=== PATIENT | female | born 1935 | race Caucasian/White ===

== ENCOUNTER 2019-02-21 16:13 | Inpatient (IN) | payer MEDICAID, MEDICARE ==
[~2019-02-21] VITALS: Ht 152.4 cm; Wt 87.5 kg
[2019-02-21 21:21] VITALS: BP 122/57
--- NOTE | 2019-02-21 22:00 | NUR ---
pt arrived on the unit @1999 via ambulance. Pt is in stable condition. Denies any pain. skin check is done, bilateral cellulitis and redness of lower extremities, R groin moisture related skin breakdown ( pictures in the chart). family is by the bedside. Belongings checked in, meds updated in the charted and Dr. Gabriel notified of patient's arrival. Nothing urgent at the moment.
[2019-02-21] MEDS ORDERED: ANAS1TAB8 PO (22:02)
[2019-02-21] MEDS ORDERED: ASPI-605 PO (22:03)
[2019-02-21] MEDS ORDERED: COLC0.6C3 PO (22:05)
[2019-02-21] MEDS ORDERED: EZET10TA32 PO (22:06)
[2019-02-21] MEDS ORDERED: FAMO40TA7 PO (22:08)
[2019-02-21] MEDS ORDERED: GABA-534 PO (22:13)
[2019-02-21] MEDS ORDERED: MECL-159 PO (22:35)
[2019-02-21] MEDS ORDERED: MEMA10TA PO (22:36)
[2019-02-21] MEDS ORDERED: MONT10TA22 PO (22:37)
[2019-02-21] MEDS ORDERED: VANC1PLA9 IV (22:39)
[2019-02-21] MEDS ORDERED: [UNRECOGNIZED DRUG - CODE] PO (22:42)
[2019-02-21] MEDS ORDERED: CEFE1PIG3 IV (22:47)
[2019-02-22 06:15] VITALS: BP 134/60
[2019-02-22] MEDS ORDERED: [UNRECOGNIZED DRUG - OTHER] SUBCUT (07:17)
[2019-02-22 08:18] VITALS: BP 122/51
[2019-02-22] MEDS ORDERED: MECLIZINE HCL 25 MG TABLET PO PRN (15:45)
[2019-02-22] MEDS ORDERED: VANCOMYCIN IV 1,000 MG in IV DEXTROSE 5% 250 ML IV SCH (16:00)
[2019-02-22 16:15] VITALS: BP 126/53
--- NOTE | 2019-02-22 16:39 | NUR ---
CLINICAL PHARMACY NOTE: VANCOMYCIN DOSING Request for vancomycin dosing on 83 y/o female 5' 200lbs for cellulitis Patient transferred from [facility] from 02/21 BUN 38 scr 1.1 WBC 15.6 Temp 98.0 Patient was receiving Vancomycin 1gm ivpb [id number] and Cefepime 1gm ivpb q12h. Vancomycin trough on was 14. Continue vancomycin 1gm ivpb q24h. Will continue to monitor. Addendum: 02/22/19 at 1703 by ANASTASIA GRIMES CULTURE AND SENSITIVITY OF TOE WOUND REVIEWED ID DISCONTINUE VANCOMYCIN STARTED BACTRIM
[2019-02-22] MEDS ORDERED: Medication Not On Formulary EA (Colchicine 0.6 MG) PO SCH (17:00)
[2019-02-22] MEDS ORDERED: DEXTROSE 50% 50 ML DISP.SYRIN IV PRN (17:15)
[2019-02-22] MEDS: MEMANTINE HCL 10 MG TABLET PO SCH (17:34)
[2019-02-22] MEDS: MONTELUKAST SODIUM 10 MG TABLET PO SCH (17:34)
[2019-02-22] MEDS: SULFAMETH/TRIMETH 800/160 MG TABLET PO SCH (17:34)
[2019-02-22] MEDS: RIVAROXABAN 15 MG TABLET PO SCH (18:37)
--- NOTE | 2019-02-22 19:08 | NUR ---
PATIENT IS ALERT, ORIENTED X3, NO SOB,RESP EVEN NONLABORED,SKIN WARM AND DRY TO TOUCH, PATIENT HAS BOTH LEGS RED AND SWOLLEN, CELLULITIS, CONTINUE ON ATB ORDERED, NOTED WITH BLACK COLOR BOWEL MOVEMENT, AND DARK COLOR, URINE, NOTIFIED LINE SUPERVISOR EVELYN MONTIEL BEFORE GIVING XERALTO, PER LINE SUPERVISOR ITS OK TO GIVE XERALTO. STAT HEMOGLOBIN AND HEMATOCRIT ORDERED. PATIENT TOLERATED MEDS AND MEALS WELL. NO DISTRESS NOTED
[2019-02-22] MEDS ORDERED: Z GUARD REMEDY PASTE 57 GM TUBE TOP PRN (19:30)
--- NOTE | 2019-02-22 19:40 | NUR ---
Awake during initial rounds, complaining of left leg and low back pain in scale of/ Guevara, TRAVEL RN OR made aware with new order, noted and carried on. Pharmacy made aware nad verified. Safety measure and fall precaution maintained. Continue care as planned.
[2019-02-22 19:44] LABS: HEMATOCRIT 33.6 % (31.2-41.9); HEMOGLOBIN 10.9 g/dL (10.9-14.3)
[2019-02-22 20:05] VITALS: BP 156/70
[2019-02-22] MEDS ORDERED: HYDROCODONE/APAP 5-325MG TABLET PO PRN (20:15)
[2019-02-22] MEDS ORDERED: MORPHINE SULFATE 2 MG/1 ML DISP.SYRIN IVP PRN (20:15)
[2019-02-22] MEDS: CEFEPIME HCL 1 G in IV DEXTROSE 5% 50 ML IV SCH (20:54)
[2019-02-22] MEDS: GABAPENTIN 300 MG CAPSULE PO SCH (20:55)
[2019-02-22] MEDS: VORICONAZOLE 200 MG TABLET PO SCH (20:55)
[2019-02-22] MEDS: EZETIMIBE 10 MG TABLET PO SCH (20:55)
[2019-02-22] MEDS ORDERED: VORICONAZOLE 200 MG PO SCH (21:00)
[2019-02-22] MEDS ORDERED: FAMOTIDINE 20 MG TABLET PO SCH (21:00)
[2019-02-22] MEDS ORDERED: Medication Not On Formulary EA (Famotidine 40 MG) PO SCH (21:00)
[2019-02-22] MEDS: BLOOD SUGAR DIAGNOSTIC 1 EACH STRIP VI SCH (21:13)
[2019-02-22] MEDS: INSULIN GLARGINE,HUM 300 UNITS/3 ML CARTRIDGE SQ SCH (21:15)
[2019-02-22] MEDS: INSULIN REGULAR, HUMAN 300 UNIT/3 ML VIAL SQ PRN (21:15)
--- NOTE | 2019-02-23 05:56 | NUR ---
Shift End Report; VS stable. Medicated once for pain with relief. No further complaint presented. Slept well. No s/s of adverse reaction from antibiotics noted. Midline intact, no s/s of infiltration. F/C intact and patent, draining qs clear yellow urine output. All needs attended and met. No significant event reported throughout the night. Continue current rehab plan of care.
[2019-02-23] MEDS: SULFAMETH/TRIMETH 800/160 MG TABLET PO SCH ×2 (06:04→17:24)
[2019-02-23] MEDS: BLOOD SUGAR DIAGNOSTIC 1 EACH STRIP VI SCH ×4 (06:16→20:53)
[2019-02-23 06:24] VITALS: BP 157/66
--- NOTE | 2019-02-23 06:25 | NUR ---
Bp 152/62, Apresoline 25 mg 1 tab po given as needed and as ordered. Pt denied any s/s of hypertension. Will monitor. Addendum: 02/23/19 at 0629 by TEODORA PITTS RN Wrong patient
[2019-02-23 06:27] LABS: BASOPHILS # (AUTO) 0.1 K/uL (0.0-8.0); BASOPHILS % (AUTO) 0.7 % (0.0-2.0); EOSINOPHILS # (AUTO) 0.6 K/uL (0.0-0.7); EOSINOPHILS % (AUTO) 3.1 % (0.0-7.0); HEMATOCRIT 34.3 % (31.2-41.9); LYMPHOCYTES # (AUTO) 2.3 K/uL (20.0-40.0); LYMPHOCYTES % (AUTO) 12.7 % (20.5-51.5); MEAN CORPUSCULAR HEMOGLOBIN 28.4 uug (24.7-32.8); MEAN CORPUSCULAR HGB CONC 32 g/dL (32.3-35.6); MEAN CORPUSCULAR VOLUME 88.8 fL (75.5-95.3); MONOCYTES # (AUTO) 1.2 K/uL (2.0-10.0); MONOCYTES % (AUTO) 6.6 % (0.0-11.0); NEUTROPHILS # (AUTO) 13.8 K/uL (1.8-8.9); NEUTROPHILS % (AUTO) 76.9 % (38.5-71.5); PLATELET COUNT (AUTO) 311 K/uL (179-408); RED BLOOD CELL COUNT(AUTO) 3.86 MIL/uL (3.63-4.92); WHITE BLOOD COUNT (AUTO) 17.9 K/uL (3.8-11.8)
[2019-02-23 06:36] LABS: POTASSIUM 4.1 mmol/L (3.5-5.1)
[2019-02-23 08:00] VITALS: BP 148/43
[2019-02-23] MEDS: MEMANTINE HCL 10 MG TABLET PO SCH ×2 (08:33→16:02)
[2019-02-23] MEDS: ASPIRIN EC 81 MG TABLET.DR PO SCH (08:33)
[2019-02-23] MEDS: VORICONAZOLE 200 MG TABLET PO SCH ×2 (08:33→20:49)
[2019-02-23] MEDS: CEFEPIME HCL 1 G in IV DEXTROSE 5% 50 ML IV SCH ×2 (08:33→20:49)
[2019-02-23] MEDS: RIVAROXABAN 15 MG TABLET PO SCH (08:34)
[2019-02-23] MEDS: ANASTROZOLE 1 MG TABLET PO SCH (08:36)
[2019-02-23 10:13] LABS: *OCCULT BLOOD STOOL POSITIVE (NEGATIVE)
[2019-02-23] MEDS: INSULIN REGULAR, HUMAN 300 UNIT/3 ML VIAL SQ PRN ×3 (11:19→20:54)
[2019-02-23] MEDS: SUCRALFATE 1 G TABLET PO SCH ×3 (12:11→20:50)
--- NOTE | 2019-02-23 13:51 | NUR ---
Patient seen and examined by ROSELIA Guevara, referred to vascular surgeon and cardio for possible IVC filter for DVT in left lower leg. Continue blood sugar monitoring. no signs of pain/discomfort noted. Stool for occult blood and cdiff collected-sent to lab. awaiting result. Continue ATB IV cefepime treatment for cellulitis. no adverse reaction noted. will continue monitor
[2019-02-23] MEDS: PANTOPRAZOLE SODIUM 40 MG TABLET.DR PO SCH (16:02)
[2019-02-23 16:09] VITALS: BP 148/43
[2019-02-23] MEDS: MONTELUKAST SODIUM 10 MG TABLET PO SCH (17:24)
--- NOTE | 2019-02-23 17:38 | NUR ---
According to lab, need to collect stool for cdiff. will endorse
[2019-02-23] MEDS: AMLODIPINE 5 MG TABLET PO SCH (18:15)
--- NOTE | 2019-02-23 18:16 | NUR ---
Patient seen and examined by cardio MD Alvarez, ordered amlodipine for HTN daily. will continue monitor
[2019-02-23 18:20] LABS: HEMATOCRIT 32.8 % (31.2-41.9); HEMOGLOBIN 10.7 g/dL (10.9-14.3)
--- NOTE | 2019-02-23 19:39 | NUR ---
Awake, in bed, not in distress. Denies any pain/discomforts at this time. Midline CHERELLE intact and patent. No redness/swelling noted. F/C intact and patent, draining clear yellow output. Continue care as planned.
[2019-02-23 19:52] VITALS: BP 126/63
[2019-02-23] MEDS: GABAPENTIN 300 MG CAPSULE PO SCH (20:49)
[2019-02-23] MEDS: EZETIMIBE 10 MG TABLET PO SCH (20:50)
[2019-02-23] MEDS: INSULIN GLARGINE,HUM 300 UNITS/3 ML CARTRIDGE SQ SCH (20:55)
[2019-02-23] MEDS: METRONIDAZOLE 500 MG TABLET PO SCH (21:47)
[2019-02-24] MEDS: SULFAMETH/TRIMETH 800/160 MG TABLET PO SCH ×2 (06:13→18:00)
[2019-02-24] MEDS: SUCRALFATE 1 G TABLET PO SCH ×4 (06:13→20:17)
[2019-02-24] MEDS: PANTOPRAZOLE SODIUM 40 MG TABLET.DR PO SCH ×2 (06:13→16:41)
[2019-02-24] MEDS: METRONIDAZOLE 500 MG TABLET PO SCH ×3 (06:13→22:00)
[2019-02-24] MEDS: BLOOD SUGAR DIAGNOSTIC 1 EACH STRIP VI SCH ×4 (06:22→20:27)
[2019-02-24 06:26] VITALS: BP 129/60
--- NOTE | 2019-02-24 06:27 | NUR ---
Shift End Report: Vs stable. Slept good. No complaint presented all night. No s/s of hypo/hypertension, s/s ofhypo/hyperglycemia. No s/s of adverse reaction from antibiotics. All needs attended and met. No significant event reported all night. Continue current rehab plan of care
[2019-02-24 06:49] LABS: BASOPHILS % (AUTO) 0.4 % (0.0-2.0); EOSINOPHILS # (AUTO) 0.4 K/uL (0.0-0.7); EOSINOPHILS % (AUTO) 3.4 % (0.0-7.0); HEMATOCRIT 32.5 % (31.2-41.9); HEMOGLOBIN 10.5 g/dL (10.9-14.3); LYMPHOCYTES # (AUTO) 2.1 K/uL (20.0-40.0); LYMPHOCYTES % (AUTO) 16.3 % (20.5-51.5); MEAN CORPUSCULAR HEMOGLOBIN 28.7 uug (24.7-32.8); MEAN CORPUSCULAR HGB CONC 32 g/dL (32.3-35.6); MEAN CORPUSCULAR VOLUME 89.2 fL (75.5-95.3); MONOCYTES # (AUTO) 1.1 K/uL (2.0-10.0); MONOCYTES % (AUTO) 8.8 % (0.0-11.0); NEUTROPHILS # (AUTO) 9.3 K/uL (1.8-8.9); NEUTROPHILS % (AUTO) 71.1 % (38.5-71.5); PLATELET COUNT (AUTO) 331 K/uL (179-408); RED BLOOD CELL COUNT(AUTO) 3.65 MIL/uL (3.63-4.92)
[2019-02-24 06:54] LABS: CREATININE 1.2 mg/dL (0.6-1.3); POTASSIUM 4.4 mmol/L (3.5-5.1)
[2019-02-24 08:23] VITALS: BP 140/42
[2019-02-24] MEDS: CEFEPIME HCL 1 G in IV DEXTROSE 5% 50 ML IV SCH (08:36)
[2019-02-24] MEDS: MEMANTINE HCL 10 MG TABLET PO SCH ×2 (08:37→16:40)
[2019-02-24] MEDS: AMLODIPINE 5 MG TABLET PO SCH (08:37)
[2019-02-24] MEDS: ASPIRIN EC 81 MG TABLET.DR PO SCH (08:37)
[2019-02-24] MEDS: VORICONAZOLE 200 MG TABLET PO SCH ×2 (08:37→20:17)
[2019-02-24] MEDS: ANASTROZOLE 1 MG TABLET PO SCH (08:39)
[2019-02-24] MEDS: INSULIN REGULAR, HUMAN 300 UNIT/3 ML VIAL SQ PRN ×2 (11:55→16:24)
--- NOTE | 2019-02-24 12:29 | NUR ---
INDIVIDUALIZE OVERALL PLAN OF CARE
--- NOTE | 2019-02-24 13:16 | NUR ---
INTERDISCIPLINARY TEAM CONFERENCE
[2019-02-24 14:42] LABS: BASOPHILS # (AUTO) 0.1 K/uL (0.0-8.0); BASOPHILS % (AUTO) 0.7 % (0.0-2.0); EOSINOPHILS # (AUTO) 0.3 K/uL (0.0-0.7); EOSINOPHILS % (AUTO) 1.8 % (0.0-7.0); HEMATOCRIT 33.1 % (31.2-41.9); HEMOGLOBIN 10.7 g/dL (10.9-14.3); LYMPHOCYTES # (AUTO) 1.6 K/uL (20.0-40.0); LYMPHOCYTES % (AUTO) 10.5 % (20.5-51.5); MEAN CORPUSCULAR HEMOGLOBIN 28.9 uug (24.7-32.8); MEAN CORPUSCULAR HGB CONC 32 g/dL (32.3-35.6); MEAN CORPUSCULAR VOLUME 89.5 fL (75.5-95.3); MONOCYTES # (AUTO) 1.1 K/uL (2.0-10.0); MONOCYTES % (AUTO) 7.3 % (0.0-11.0); NEUTROPHILS # (AUTO) 11.8 K/uL (1.8-8.9); NEUTROPHILS % (AUTO) 79.7 % (38.5-71.5); PLATELET COUNT (AUTO) 321 K/uL (179-408); RED BLOOD CELL COUNT(AUTO) 3.69 MIL/uL (3.63-4.92); WHITE BLOOD COUNT (AUTO) 14.9 K/uL (3.8-11.8)
[2019-02-24 14:53] LABS: CARBON DIOXIDE 27 mmol/L (21-32); CHLORIDE 100 mmol/L (98-107); CREATININE 1.6 mg/dL (0.6-1.3); GLUCOSE 213 mg/dL (74-106); POTASSIUM 4.9 mmol/L (3.5-5.1); UREA NITROGEN, BLOOD 39 mg/dL (7-18)
[2019-02-24 15:36] VITALS: BP 132/57
--- NOTE | 2019-02-24 16:47 | NUR ---
Received patient awake in bed in stable condition. not in distress. Seen and examined by ROSELIA Guevara and MD Alvarez with no new order. Patient will have procedure around 530pm with vascular surgeon MD Gonzalez. CBC CMP chest x-ray and EKG requested by and done. Patient sign consent. Brother Jony aware. MD Gabriel notified. ROSELIA Guevara agree to return to Acute Rehab after the procedure. will endorse
--- NOTE | 2019-02-24 17:19 | NUR ---
Patient went to OR around 515pm with her bed with 2 OR nurse in stable condition. Remove jewerlies and dentures. Chart and signed consent with Jaylin OR nurse.
[2019-02-24] MEDS ORDERED: MIDAZOLAM HCL 2 MG/2 ML VIAL ONE (17:48)
[2019-02-24] MEDS ORDERED: FENTANYL CITRATE 100 MCG/2 ML AMPUL ONE (17:48)
[2019-02-24] MEDS: MONTELUKAST SODIUM 10 MG TABLET PO SCH (18:00)
--- NOTE | 2019-02-24 19:25 | NUR ---
Received patient from Recovery, S/P IVC filter placement, dressing on right groin area dry and intact. Awake, not in distress, denies any pain/discomforts at this time, with IVF infusing. O2 at 2L via NC, saturating 96%. F/C intact, draining well with clear yellow urine output. Maintain on supine position till 1030 per instruction by OR nurse. Vs taken and recorded. Will monitor for bleeding.
[2019-02-24] MEDS: CEFTRIAXONE 1 G in IV DEXTROSE 5% 50 ML IV SCH (20:17)
[2019-02-24] MEDS: EZETIMIBE 10 MG TABLET PO SCH (20:17)
[2019-02-24] MEDS: GABAPENTIN 300 MG CAPSULE PO SCH (20:18)
[2019-02-24] MEDS: INSULIN GLARGINE,HUM 300 UNITS/3 ML CARTRIDGE SQ SCH (20:26)
--- NOTE | 2019-02-24 20:55 | NUR ---
Patient continue to refused Gabapentin due despite instructing her the risk and benefits. Will endorse to oncoming shift.
[2019-02-25] MEDS: METRONIDAZOLE 500 MG TABLET PO SCH ×3 (05:50→21:01)
[2019-02-25 06:11] VITALS: BP 133/57
--- NOTE | 2019-02-25 06:16 | NUR ---
Shift End Report: VS stable. No complaint presented all night. No active bleeding noted. Right groin dressing remain dry and intact. F/C intact and patent with qs amount of clear angela urine. No significant event reported all night. Continue current rehab plan of care.
[2019-02-25] MEDS: BLOOD SUGAR DIAGNOSTIC 1 EACH STRIP VI SCH ×4 (06:26→20:09)
[2019-02-25] MEDS: INSULIN REGULAR, HUMAN 300 UNIT/3 ML VIAL SQ PRN ×4 (08:05→20:11)
[2019-02-25] MEDS ORDERED: MECLIZINE HCL 25 MG TABLET PO PRN (08:15)
[2019-02-25] MEDS ORDERED: MORPHINE SULFATE 2 MG/1 ML DISP.SYRIN IVP PRN (08:15)
[2019-02-25] MEDS: VORICONAZOLE 200 MG TABLET PO SCH ×2 (08:42→20:16)
[2019-02-25 08:43] LABS: BASOPHILS % (AUTO) 0.4 % (0.0-2.0); CREATININE 1.3 mg/dL (0.6-1.3); EOSINOPHILS # (AUTO) 0.3 K/uL (0.0-0.7); EOSINOPHILS % (AUTO) 2.8 % (0.0-7.0); HEMATOCRIT 31.7 % (31.2-41.9); HEMOGLOBIN 10.2 g/dL (10.9-14.3); LYMPHOCYTES # (AUTO) 1.8 K/uL (20.0-40.0); LYMPHOCYTES % (AUTO) 15.5 % (20.5-51.5); MEAN CORPUSCULAR HEMOGLOBIN 28.7 uug (24.7-32.8); MEAN CORPUSCULAR HGB CONC 32 g/dL (32.3-35.6); MEAN CORPUSCULAR VOLUME 89.2 fL (75.5-95.3); MONOCYTES % (AUTO) 8.4 % (0.0-11.0); NEUTROPHILS # (AUTO) 8.7 K/uL (1.8-8.9); NEUTROPHILS % (AUTO) 72.9 % (38.5-71.5); PLATELET COUNT (AUTO) 343 K/uL (179-408); POTASSIUM 4.3 mmol/L (3.5-5.1); RED BLOOD CELL COUNT(AUTO) 3.55 MIL/uL (3.63-4.92); WHITE BLOOD COUNT (AUTO) 11.9 K/uL (3.8-11.8)
[2019-02-25] MEDS: ANASTROZOLE 1 MG TABLET PO SCH (08:43)
[2019-02-25] MEDS: MEMANTINE HCL 10 MG TABLET PO SCH ×2 (08:45→17:00)
[2019-02-25] MEDS: AMLODIPINE 5 MG TABLET PO SCH (08:48)
[2019-02-25] MEDS: ASPIRIN EC 81 MG TABLET.DR PO SCH (08:48)
[2019-02-25] MEDS: COLCHICINE 0.6 MG TABLET PO SCH ×2 (09:05→17:00)
[2019-02-25] MEDS: SUCRALFATE 1 G TABLET PO SCH ×3 (11:14→20:06)
--- NOTE | 2019-02-25 15:43 | NUR ---
PATIENT IS ALERT, ORIENTED X4, NO SOB,RESP EVEN NONLABORED, SKIN WARM AND DRY TO TOUCH, PATIENT STILL NOTED WITH REDNESS TO BOTH LOWER EXTREMITIES, SWOLLEN AND EDEMATOUS, LEFT 4TH TOES CALLOUS, AND DEBRIDED ON 02/17/19. DRY AND CLEAN, HARD TO TOUCH ON THE BOTTOM OF LEFT 4TH TOE. PATIENT IS ABLE TO STAND WITH ASSIST, ASSISTED TO BATHROOM, NO DISTRESS NOTED, TOLERATED PT, OT WELL. CONTINUE ON ATB THERAPY, NO ADVERSE REACTIONS NOTED, NO NAUSEA, NO VOMITING, NOTED WITH BM X2, SOFT, AND FORMED.
[2019-02-25] MEDS: MONTELUKAST SODIUM 10 MG TABLET PO SCH (17:01)
[2019-02-25] MEDS: PANTOPRAZOLE SODIUM 40 MG TABLET.DR PO SCH (17:03)
[2019-02-25 18:45] VITALS: BP 139/85
[2019-02-25 19:40] VITALS: BP 147/67
[2019-02-25] MEDS: CEFTRIAXONE 1 G in IV DEXTROSE 5% 50 ML IV SCH (20:04)
[2019-02-25] MEDS: GABAPENTIN 300 MG CAPSULE PO SCH (20:05)
[2019-02-25] MEDS: EZETIMIBE 10 MG TABLET PO SCH (20:06)
[2019-02-25] MEDS: INSULIN GLARGINE,HUM 300 UNITS/3 ML CARTRIDGE SQ SCH (20:10)
[2019-02-26 04:30] VITALS: BP 142/62
[2019-02-26] MEDS: METRONIDAZOLE 500 MG TABLET PO SCH ×3 (06:33→21:27)
[2019-02-26] MEDS: PANTOPRAZOLE SODIUM 40 MG TABLET.DR PO SCH ×2 (06:33→16:26)
[2019-02-26] MEDS: SUCRALFATE 1 G TABLET PO SCH ×4 (06:33→20:58)
[2019-02-26] MEDS: BLOOD SUGAR DIAGNOSTIC 1 EACH STRIP VI SCH ×4 (06:41→21:08)
[2019-02-26 07:32] LABS: BASOPHILS # (AUTO) 0.1 K/uL (0.0-8.0); BASOPHILS % (AUTO) 0.5 % (0.0-2.0); EOSINOPHILS # (AUTO) 0.3 K/uL (0.0-0.7); EOSINOPHILS % (AUTO) 2.7 % (0.0-7.0); HEMATOCRIT 32.4 % (31.2-41.9); HEMOGLOBIN 10.5 g/dL (10.9-14.3); LYMPHOCYTES # (AUTO) 2.4 K/uL (20.0-40.0); LYMPHOCYTES % (AUTO) 19.9 % (20.5-51.5); MEAN CORPUSCULAR HEMOGLOBIN 28.4 uug (24.7-32.8); MEAN CORPUSCULAR HGB CONC 33 g/dL (32.3-35.6); MEAN CORPUSCULAR VOLUME 87.4 fL (75.5-95.3); MONOCYTES # (AUTO) 0.9 K/uL (2.0-10.0); MONOCYTES % (AUTO) 7.8 % (0.0-11.0); NEUTROPHILS # (AUTO) 8.2 K/uL (1.8-8.9); NEUTROPHILS % (AUTO) 69.1 % (38.5-71.5); PLATELET COUNT (AUTO) 351 K/uL (179-408); RED BLOOD CELL COUNT(AUTO) 3.71 MIL/uL (3.63-4.92); WHITE BLOOD COUNT (AUTO) 11.8 K/uL (3.8-11.8)
[2019-02-26 07:42] LABS: POTASSIUM 4.2 mmol/L (3.5-5.1)
[2019-02-26] MEDS: HYDROCODONE/APAP 5-325MG TABLET PO PRN (08:18)
[2019-02-26] MEDS ORDERED: COLCHICINE 0.6 MG TABLET PO SCH (09:00)
[2019-02-26] MEDS: ASPIRIN EC 81 MG TABLET.DR PO SCH ×2 (09:00→09:03)
[2019-02-26] MEDS: COLCHICINE 0.6 MG TABLET PO SCH ×2 (09:04→16:23)
[2019-02-26] MEDS: AMLODIPINE 5 MG TABLET PO SCH (09:04)
[2019-02-26] MEDS: MEMANTINE HCL 10 MG TABLET PO SCH ×2 (09:05→16:23)
[2019-02-26] MEDS: ANASTROZOLE 1 MG TABLET PO SCH (09:06)
--- NOTE | 2019-02-26 10:00 | NUR ---
PATIENT COMPLAINED PAIN TO HER RIGHT GROIN AREA, AND RADIATING TO HER BACK, WHILE AMBULATED TO THE BATHROOM WITH ASSIST WITH FWW, ASSESSED THE AREA OF INSERTION AT CATHETER SITE AT RIGHT GROIN, NO SWELLING NOTED, NO REDNESS NOTED, NO DRAINAGE NOTED. HOWEVER PATIENT STATED PAIN STOPPED ONCE SHE WAS IN BED. REPORTED TO GARETH PULLIAM, WITH ORDER TO CONTINUE TO MONITOR.
--- NOTE | 2019-02-26 11:49 | NUR ---
PAGED EPIC GROUP REGARDING POSITIVE RESULT OF C-DIFF. WAITING FOR CALL BACK.
--- NOTE | 2019-02-26 11:55 | NUR ---
CALL RECEIVED FROM ROSELIA RIVAS REPORTED C-DIFF POSITIVE,PER CONTENT STRATEGIST HE WILL INFORM THE ID
[2019-02-26] MEDS: INSULIN REGULAR, HUMAN 300 UNIT/3 ML VIAL SQ PRN ×3 (12:16→21:12)
[2019-02-26] MEDS: VANCOMYCIN FOR PO/GT/NG USE PO SCH ×3 (13:57→23:12)
--- NOTE | 2019-02-26 14:15 | NUR ---
patient is alert, oriented x4, no sob, resp even nonlabored, skin warm and dry to touch, still noted with both lower legs edema, swollen and redness, left extremity some purplish discoloration, pedal pulse present, capillary refill less than 3 seconds, sensations are intact. continue on atb for cellulitis and for c-diff, no adverse reactions noted, no nausea, no vomiting, no skin rashes. patient tolerated meals and meds well. assisted to the bathroom, BM x1 is soft and somewhat formed. jain catheter intact, draining angela color urine.
[2019-02-26 17:22] VITALS: BP 136/81
[2019-02-26] MEDS: MONTELUKAST SODIUM 10 MG TABLET PO SCH (17:32)
[2019-02-26 19:37] VITALS: BP 138/79
[2019-02-26] MEDS: CEFTRIAXONE 1 G in IV DEXTROSE 5% 50 ML IV SCH (20:51)
[2019-02-26] MEDS: EZETIMIBE 10 MG TABLET PO SCH (20:58)
[2019-02-26] MEDS: GABAPENTIN 300 MG CAPSULE PO SCH (20:58)
[2019-02-26] MEDS: INSULIN GLARGINE,HUM 300 UNITS/3 ML CARTRIDGE SQ SCH (21:13)
--- NOTE | 2019-02-27 04:44 | NUR ---
Received patient in bed. AAO x4. Not in acute distress or SOB. Able to make needs known. Norwegian speaking but can communicate in Grenadian. On room air. No Complain of pain. VS checked, stable. Double lumen mid-line on her right upper arm, intact, patent. Robertson catheter in place, draining well, yellow urine. Physical assessment done. IV Rocephin 1 G administered. All due medications given as ordered and well tolerated. Accucheck @2100: BS 183 covered by 3 units insulin based on sliding scale. Fall prevention observed. Safety measures maintained. All needs attended promptly. Bed in low and lock position, alarm on, side rails up x2 for safety. Call light and frequently used items within reach. Continue to monitor and will endorse to the oncoming nurse accordingly.
[2019-02-27] MEDS: METRONIDAZOLE 500 MG TABLET PO SCH ×2 (06:08→14:53)
[2019-02-27] MEDS: PANTOPRAZOLE SODIUM 40 MG TABLET.DR PO SCH ×2 (06:08→17:14)
[2019-02-27] MEDS: VANCOMYCIN FOR PO/GT/NG USE PO SCH ×3 (06:08→17:21)
[2019-02-27] MEDS: SUCRALFATE 1 G TABLET PO SCH ×4 (06:32→20:42)
[2019-02-27] MEDS: BLOOD SUGAR DIAGNOSTIC 1 EACH STRIP VI SCH ×4 (06:33→20:56)
[2019-02-27 07:00] VITALS: BP 135/69
[2019-02-27 07:00] LABS: POTASSIUM 4.9 mmol/L (3.5-5.1)
[2019-02-27 07:25] LABS: BASOPHILS # (AUTO) 0.1 K/uL (0.0-8.0); BASOPHILS % (AUTO) 0.5 % (0.0-2.0); EOSINOPHILS # (AUTO) 0.4 K/uL (0.0-0.7); EOSINOPHILS % (AUTO) 2.9 % (0.0-7.0); HEMATOCRIT 33.8 % (31.2-41.9); HEMOGLOBIN 10.9 g/dL (10.9-14.3); LYMPHOCYTES # (AUTO) 3.1 K/uL (20.0-40.0); LYMPHOCYTES % (AUTO) 24.4 % (20.5-51.5); MEAN CORPUSCULAR HEMOGLOBIN 29.1 uug (24.7-32.8); MEAN CORPUSCULAR HGB CONC 32 g/dL (32.3-35.6); MEAN CORPUSCULAR VOLUME 90.1 fL (75.5-95.3); MONOCYTES # (AUTO) 0.9 K/uL (2.0-10.0); MONOCYTES % (AUTO) 7.1 % (0.0-11.0); NEUTROPHILS # (AUTO) 8.2 K/uL (1.8-8.9); NEUTROPHILS % (AUTO) 65.1 % (38.5-71.5); PLATELET COUNT (AUTO) 350 K/uL (179-408); RED BLOOD CELL COUNT(AUTO) 3.75 MIL/uL (3.63-4.92); WHITE BLOOD COUNT (AUTO) 12.5 K/uL (3.8-11.8)
[2019-02-27] MEDS: ANASTROZOLE 1 MG TABLET PO SCH (08:21)
[2019-02-27] MEDS: ASPIRIN EC 81 MG TABLET.DR PO SCH (08:22)
[2019-02-27] MEDS: COLCHICINE 0.6 MG TABLET PO SCH ×2 (08:22→17:14)
[2019-02-27] MEDS: MEMANTINE HCL 10 MG TABLET PO SCH ×2 (08:23→17:14)
[2019-02-27] MEDS: AMLODIPINE 5 MG TABLET PO SCH (08:51)
[2019-02-27 09:00] VITALS: BP_SYST 124; BP_SYST 133; BP_DIAS 52; BP_DIAS 64
[2019-02-27] MEDS: HYDROCODONE/APAP 5-325MG TABLET PO PRN (12:20)
--- NOTE | 2019-02-27 13:15 | NUR ---
System not allowing to cosign. BS of 258mg, 6units of insulin verified by another RN and administered.
[2019-02-27] MEDS: INSULIN REGULAR, HUMAN 300 UNIT/3 ML VIAL SQ PRN ×3 (14:28→20:58)
[2019-02-27] MEDS: MONTELUKAST SODIUM 10 MG TABLET PO SCH (17:19)
--- NOTE | 2019-02-27 18:45 | NUR ---
Patient is AAOx4. Able to make needs known. In No acute distress. Vital signs taken and stable. Patient with midline or right arm, intact and in place. Denies pain at this time. Due medications administered as ordered and scheduled. Patient on Vancomycin PO, Flagyl and IV Rocephin. NO adverse reaction noted and tolerating well. [place] 5/325mg PO 1 tab PRN administered for pain and effective. Patient on PT/OT therapy as ordered, able to ambulate with a walker and W/C. Needs attended, safety measures in place, call light left at bed side, endorsed to next shift and will continue with care.
--- NOTE | 2019-02-27 19:40 | NUR ---
Received patient awake in bed, stable condition; AAO x4. Not in acute distress. No SOB. Assisted with current needs. Primary language is Mosotho, but can communicate in Czech well. Vital signs are within normal limits; no complaints of pain at the moment. On room air, tolerating well. Right upper arm midline; patent and intact; no s/s of infection or bleeding. Robertson catheter is patent and intact; urine is clear and yellow. Physical assessment done. Patient has right prosthetic eye. Fall risk precaution observed. Safety measures maintained. Bed in low and lock position, side rails up x 2 and bed alarm on for safety. Educated patient on how to use call light. Call light and frequently used items within reach. Will continue to monitor and give care accordingly.
[2019-02-27 20:00] VITALS: BP 133/74
[2019-02-27] MEDS: CEFTRIAXONE 1 G in IV DEXTROSE 5% 50 ML IV SCH (20:34)
[2019-02-27] MEDS: EZETIMIBE 10 MG TABLET PO SCH (20:42)
[2019-02-27] MEDS: GABAPENTIN 300 MG CAPSULE PO SCH (20:43)
[2019-02-27] MEDS: INSULIN GLARGINE,HUM 300 UNITS/3 ML CARTRIDGE SQ SCH (20:57)
[2019-02-28] MEDS: GABAPENTIN 300 MG CAPSULE PO SCH ×2 (00:54→20:37)
--- NOTE | 2019-02-28 01:30 | NUR ---
Patient refused GABAPENTIN at 2100; explained risks and benefits x 3 times, still refused. Patient complained of neurological pain and inability to sleep at 0050; she requested GABAPENTIN to be given to her. Medication given at 0054; effective. Patient is now asleep and in stable condition. Will continue to monitor patient.
[2019-02-28] MEDS: PANTOPRAZOLE SODIUM 40 MG TABLET.DR PO SCH ×2 (06:37→16:23)
[2019-02-28] MEDS: SUCRALFATE 1 G TABLET PO SCH ×4 (06:37→20:36)
[2019-02-28] MEDS: BLOOD SUGAR DIAGNOSTIC 1 EACH STRIP VI SCH ×4 (06:58→20:51)
[2019-02-28 07:07] LABS: BASOPHILS # (AUTO) 0.1 K/uL (0.0-8.0); BASOPHILS % (AUTO) 0.4 % (0.0-2.0); EOSINOPHILS # (AUTO) 0.4 K/uL (0.0-0.7); EOSINOPHILS % (AUTO) 2.9 % (0.0-7.0); HEMATOCRIT 32.5 % (31.2-41.9); HEMOGLOBIN 10.4 g/dL (10.9-14.3); LYMPHOCYTES # (AUTO) 2.8 K/uL (20.0-40.0); LYMPHOCYTES % (AUTO) 22.2 % (20.5-51.5); MEAN CORPUSCULAR HEMOGLOBIN 28.7 uug (24.7-32.8); MEAN CORPUSCULAR HGB CONC 32 g/dL (32.3-35.6); MEAN CORPUSCULAR VOLUME 89.5 fL (75.5-95.3); MONOCYTES # (AUTO) 0.8 K/uL (2.0-10.0); NEUTROPHILS # (AUTO) 8.6 K/uL (1.8-8.9); NEUTROPHILS % (AUTO) 68.5 % (38.5-71.5); PLATELET COUNT (AUTO) 357 K/uL (179-408); RED BLOOD CELL COUNT(AUTO) 3.63 MIL/uL (3.63-4.92); WHITE BLOOD COUNT (AUTO) 12.6 K/uL (3.8-11.8)
[2019-02-28 07:14] VITALS: BP 139/75
[2019-02-28 07:49] VITALS: BP 133/70
[2019-02-28 07:56] LABS: POTASSIUM 4.4 mmol/L (3.5-5.1)
[2019-02-28] MEDS: INSULIN REGULAR, HUMAN 300 UNIT/3 ML VIAL SQ PRN ×4 (08:15→20:53)
[2019-02-28] MEDS: HYDROCODONE/APAP 5-325MG TABLET PO PRN (08:17)
[2019-02-28] MEDS: AMLODIPINE 5 MG TABLET PO SCH (08:20)
[2019-02-28] MEDS: COLCHICINE 0.6 MG TABLET PO SCH ×2 (08:22→16:23)
[2019-02-28] MEDS: MEMANTINE HCL 10 MG TABLET PO SCH ×2 (08:22→16:23)
[2019-02-28] MEDS: ANASTROZOLE 1 MG TABLET PO SCH (08:24)
[2019-02-28] MEDS: ASPIRIN EC 81 MG TABLET.DR PO SCH (08:25)
--- NOTE | 2019-02-28 15:24 | NUR ---
PATIENT IS ALERT, ORIENTED X4, VERBALLY RESPONSIVE, NO SOB, RESP EVEN NONLABORED, SKIN WARM AND DRY TO TOUCH,NO DISTRESS NOTED, PATIENT GOT SHOWER, TOLERATED WELL, PATIENT DOES NOT HAVE DIARRHEA FOR 48 HOURS, ISOLATION DISCONTINUED. STILL NOTED WITH REDNESS, AND EDEMA TO BOTH LOWER LEGS, HOWEVER SKIN IS INTACT. CONTINUE TO MONITOR
[2019-02-28 16:48] VITALS: BP 128/68
--- NOTE | 2019-02-28 16:54 | NUR ---
PATIENT IS CONTINENT OF BM, ASSISTED TO THE BATHROOM, ABLE TO VERBALIZE WHEN URGE FOR BM. NO ACCIDENT OF BOWEL NOTED IN THE BRIEF.
[2019-02-28] MEDS: MONTELUKAST SODIUM 10 MG TABLET PO SCH (17:22)
--- NOTE | 2019-02-28 19:12 | NUR ---
PATIENT NOTED WITH DRY COUGH, SATURATING AT 95% AT ROOM AIR, SITTING UP IN BED, AND EATING HER OWN FOOD, ALERT, ORIENTED X4, NO SOB, RESP EVEN NONLABORED, NO DISTRESS NOTED, ENDORSED TO NEXT SHIFT ACCORDINGLY
[2019-02-28 19:49] VITALS: BP 143/75
[2019-02-28] MEDS: CEFTRIAXONE 1 G in IV DEXTROSE 5% 50 ML IV SCH (20:17)
[2019-02-28] MEDS: EZETIMIBE 10 MG TABLET PO SCH (20:44)
[2019-02-28] MEDS: INSULIN GLARGINE,HUM 300 UNITS/3 ML CARTRIDGE SQ SCH (20:54)
[2019-02-28] MEDS: VANCOMYCIN FOR PO/GT/NG USE PO SCH (21:00)
--- NOTE | 2019-02-28 21:23 | NUR ---
vancomycin 125mg po not given medication not available pharmacy closed, nursing final assembly and packing supervisor aware.
--- NOTE | 2019-02-28 21:43 | NUR ---
resting in bed upon initial rounds. aaox4 needs attended. VSS. fall precautions maintained. call snow within reach. denies any pain at this time. Due meds given and tolerated well. will monitor patient.
[2019-03-01 05:47] VITALS: BP 150/70
--- NOTE | 2019-03-01 06:02 | NUR ---
quiet night. needs attended. VSS kept comfortable. jain catheter intact draining yellow urine. BM noted this shift. will monitor patient. fall precautions maintained. siderails up for safety.
[2019-03-01] MEDS: PANTOPRAZOLE SODIUM 40 MG TABLET.DR PO SCH ×2 (06:29→17:25)
[2019-03-01] MEDS: SUCRALFATE 1 G TABLET PO SCH ×4 (06:31→20:18)
[2019-03-01] MEDS: BLOOD SUGAR DIAGNOSTIC 1 EACH STRIP VI SCH ×4 (06:34→20:32)
[2019-03-01] MEDS: MEMANTINE HCL 10 MG TABLET PO SCH ×2 (08:21→17:25)
[2019-03-01] MEDS: AMLODIPINE 5 MG TABLET PO SCH (08:21)
[2019-03-01] MEDS: ASPIRIN EC 81 MG TABLET.DR PO SCH (08:21)
[2019-03-01] MEDS: COLCHICINE 0.6 MG TABLET PO SCH ×2 (08:21→17:25)
[2019-03-01] MEDS: ANASTROZOLE 1 MG TABLET PO SCH (08:24)
[2019-03-01] MEDS: VANCOMYCIN FOR PO/GT/NG USE PO SCH ×4 (11:34→20:18)
[2019-03-01] MEDS: INSULIN REGULAR, HUMAN 300 UNIT/3 ML VIAL SQ PRN ×3 (11:42→20:33)
[2019-03-01 12:17] VITALS: BP 133/74
--- NOTE | 2019-03-01 15:58 | NUR ---
Patient continue therapy for ambulation and ADL ability. not in distress. no complaint of pain/discomfort during rounds. will continue monitor
[2019-03-01] MEDS: MONTELUKAST SODIUM 10 MG TABLET PO SCH (17:25)
[2019-03-01] MEDS: GABAPENTIN 300 MG CAPSULE PO SCH (20:18)
[2019-03-01] MEDS: EZETIMIBE 10 MG TABLET PO SCH (20:19)
[2019-03-01] MEDS: CEFTRIAXONE 1 G in IV DEXTROSE 5% 50 ML IV SCH (20:20)
[2019-03-01] MEDS: INSULIN GLARGINE,HUM 300 UNITS/3 ML CARTRIDGE SQ SCH (20:32)
[2019-03-01 20:48] VITALS: BP 138/70
--- NOTE | 2019-03-01 21:33 | NUR ---
resting in bed watching TV. In no distress. AAOx4 needs attended. On IV antibiotic given via right upper midline. No ill effects noted. Robertson catheter draining yellow urine. I & O monitor. Siderails up for safety. Call snow within reach. VSS.
[2019-03-02 05:32] VITALS: BP 164/87
[2019-03-02] MEDS: PANTOPRAZOLE SODIUM 40 MG TABLET.DR PO SCH ×2 (06:34→17:19)
[2019-03-02] MEDS: SUCRALFATE 1 G TABLET PO SCH ×4 (06:34→20:33)
[2019-03-02] MEDS: BLOOD SUGAR DIAGNOSTIC 1 EACH STRIP VI SCH ×4 (06:39→20:53)
--- NOTE | 2019-03-02 06:57 | NUR ---
quiet night. needs attended. VSS. kept comfortable. jain catheter draining yellow urine. I & O monitor. Repositioned for comfort Turned to sides. No acute distress noted. Fall precautions maintained. No complaints presented during shift. Slept well.
--- NOTE | 2019-03-02 07:14 | NUR ---
patient is sleeping in bed, no sob, no distress noted
[2019-03-02 07:46] VITALS: BP 156/70
[2019-03-02] MEDS: MEMANTINE HCL 10 MG TABLET PO SCH ×2 (08:08→17:19)
[2019-03-02] MEDS: COLCHICINE 0.6 MG TABLET PO SCH ×2 (08:08→17:20)
[2019-03-02] MEDS: AMLODIPINE 5 MG TABLET PO SCH (08:08)
[2019-03-02] MEDS: ASPIRIN EC 81 MG TABLET.DR PO SCH (08:09)
[2019-03-02] MEDS: VANCOMYCIN FOR PO/GT/NG USE PO SCH ×4 (08:10→20:34)
[2019-03-02] MEDS: ANASTROZOLE 1 MG TABLET PO SCH (08:15)
--- NOTE | 2019-03-02 10:41 | NUR ---
gabapentin changed to 100mg per patient request and approved with dr Salmeron.
[2019-03-02] MEDS: INSULIN REGULAR, HUMAN 300 UNIT/3 ML VIAL SQ PRN ×3 (11:46→20:52)
--- NOTE | 2019-03-02 13:10 | NUR ---
PATIENT IS ALERT, ORIENTED X4, VERBALLY RESPONSIVE, NO SOB,RESP EVEN NONLABORED,SKIN WARM AND DRY TO TOUCH, ABLE TO AMBULATE WITH ASSIST WITH FWW, BOBO CATHETER IS INTACT, DRAINING VINCENT COLOR URINE, WILL CONSIDER TO DC AND BLADDER TRAINING. NO DISTRESS NOTED
--- NOTE | 2019-03-02 14:45 | NUR ---
MD ZHAO ORDERED TO DISCONTINUE THE BOBO CATHETER AND PERFORM BLADDER SCAN IF PATIENT IS UNABLE TO VOID IN 8 HOURS.
[2019-03-02] MEDS: MONTELUKAST SODIUM 10 MG TABLET PO SCH (17:19)
[2019-03-02 19:33] VITALS: BP 133/65
[2019-03-02] MEDS: GABAPENTIN 100 MG CAPSULE PO SCH (20:32)
[2019-03-02] MEDS: EZETIMIBE 10 MG TABLET PO SCH (20:33)
[2019-03-02] MEDS: CEFTRIAXONE 1 G in IV DEXTROSE 5% 50 ML IV SCH (20:36)
[2019-03-02] MEDS: INSULIN GLARGINE,HUM 300 UNITS/3 ML CARTRIDGE SQ SCH (20:50)
--- NOTE | 2019-03-02 21:21 | NUR ---
awake alert and oriented x4. needs attended. Patient still on rocephin IV given thru her right upper midline. No ill effects noted. VSS. Patient incontinent of urine x2. Kept clean and dry. No acute distress noted. Fall precautions maintained. Siderails up for safety. Tolerated po meds well. Accucheck 165, with 3units coverage given. Denies any pain nor any discomfort. Will monitor patient.
[2019-03-03 05:57] VITALS: BP 140/67
[2019-03-03] MEDS: PANTOPRAZOLE SODIUM 40 MG TABLET.DR PO SCH ×2 (06:18→17:25)
[2019-03-03] MEDS: SUCRALFATE 1 G TABLET PO SCH ×4 (06:30→21:04)
[2019-03-03] MEDS: BLOOD SUGAR DIAGNOSTIC 1 EACH STRIP VI SCH ×4 (06:31→21:11)
--- NOTE | 2019-03-03 06:52 | NUR ---
slept well most of the shift. aaox4 no acute distress noted. needs attended. VSS. Incontinent of urine x3 kept clean and dry. kept comfortable. Will monitor patient. fall precautions maintained. Siderails up for safety.
[2019-03-03] MEDS: COLCHICINE 0.6 MG TABLET PO SCH ×2 (08:50→17:24)
[2019-03-03] MEDS: ASPIRIN EC 81 MG TABLET.DR PO SCH (08:50)
[2019-03-03] MEDS: MEMANTINE HCL 10 MG TABLET PO SCH ×2 (08:51→17:24)
[2019-03-03] MEDS: VANCOMYCIN FOR PO/GT/NG USE PO SCH ×4 (08:52→21:17)
[2019-03-03] MEDS: ANASTROZOLE 1 MG TABLET PO SCH (08:53)
[2019-03-03] MEDS: AMLODIPINE 5 MG TABLET PO SCH (09:02)
--- NOTE | 2019-03-03 10:41 | NUR ---
INTERDISCIPLINARY TEAM CONFERENCE
[2019-03-03] MEDS: INSULIN REGULAR, HUMAN 300 UNIT/3 ML VIAL SQ PRN ×3 (11:37→21:14)
[2019-03-03 17:00] VITALS: BP 148/75
[2019-03-03] MEDS: MONTELUKAST SODIUM 10 MG TABLET PO SCH (17:28)
[2019-03-03 19:42] VITALS: BP 143/70
[2019-03-03] MEDS: CEFTRIAXONE 1 G in IV DEXTROSE 5% 50 ML IV SCH (20:48)
[2019-03-03] MEDS: EZETIMIBE 10 MG TABLET PO SCH (21:05)
[2019-03-03] MEDS: GABAPENTIN 100 MG CAPSULE PO SCH (21:05)
[2019-03-03] MEDS: INSULIN GLARGINE,HUM 300 UNITS/3 ML CARTRIDGE SQ SCH (21:15)
--- NOTE | 2019-03-04 04:12 | NUR ---
Received patient in bed. AAO x4. Not in acute distress or SOB. Able to make needs known. Algerian speaking but can communicate in South Sudanese. On room air. No Complain of pain. VS checked, stable. Double lumen mid-line on her right upper arm, intact, patent. Physical assessment done. IV Rocephin 1 G administered. All due medications given as ordered and well tolerated. Accucheck @2100: BS 163 covered by 3 units insulin based on sliding scale. Assisted her to the bathroom as needed. Fall prevention observed. Safety measures maintained. All needs attended promptly. Bed in low and lock position, alarm on, side rails up x2 for safety. Call light and frequently used items within reach. Continue to monitor and will endorse to the oncoming nurse accordingly.
[2019-03-04 05:26] VITALS: BP 139/65
[2019-03-04] MEDS: PANTOPRAZOLE SODIUM 40 MG TABLET.DR PO SCH ×2 (06:15→17:20)
[2019-03-04] MEDS: SUCRALFATE 1 G TABLET PO SCH ×4 (06:34→21:10)
[2019-03-04] MEDS: BLOOD SUGAR DIAGNOSTIC 1 EACH STRIP VI SCH ×4 (06:35→20:24)
[2019-03-04 08:08] VITALS: BP 128/65
[2019-03-04] MEDS: AMLODIPINE 5 MG TABLET PO SCH (08:12)
[2019-03-04] MEDS: ASPIRIN EC 81 MG TABLET.DR PO SCH (08:12)
[2019-03-04] MEDS: ANASTROZOLE 1 MG TABLET PO SCH (08:14)
[2019-03-04] MEDS: MEMANTINE HCL 10 MG TABLET PO SCH ×2 (08:14→17:21)
[2019-03-04] MEDS: COLCHICINE 0.6 MG TABLET PO SCH ×2 (08:14→17:20)
[2019-03-04] MEDS: VANCOMYCIN FOR PO/GT/NG USE PO SCH ×4 (08:22→21:15)
[2019-03-04] MEDS: INSULIN REGULAR, HUMAN 300 UNIT/3 ML VIAL SQ PRN ×3 (11:45→21:18)
--- NOTE | 2019-03-04 15:20 | NUR ---
Patient is alert, oriented x 3, not in any form of distress, on room air. She denies any pain or discomfort. Assisted patient to the bathroom to void and have BM. Due medications administered and tolerated well. Needs attended to promptly. Call light and frequently used items placed within reach.
[2019-03-04 17:00] VITALS: BP 144/74
[2019-03-04] MEDS: MONTELUKAST SODIUM 10 MG TABLET PO SCH (17:19)
[2019-03-04 19:30] VITALS: BP 147/68
[2019-03-04] MEDS: EZETIMIBE 10 MG TABLET PO SCH (21:10)
[2019-03-04] MEDS: GABAPENTIN 100 MG CAPSULE PO SCH (21:10)
[2019-03-04] MEDS: INSULIN GLARGINE,HUM 300 UNITS/3 ML CARTRIDGE SQ SCH (21:16)
[2019-03-05] MEDS: PANTOPRAZOLE SODIUM 40 MG TABLET.DR PO SCH ×2 (06:15→17:08)
[2019-03-05 06:32] VITALS: BP 155/68
[2019-03-05] MEDS: BLOOD SUGAR DIAGNOSTIC 1 EACH STRIP VI SCH ×4 (06:34→22:00)
[2019-03-05] MEDS: SUCRALFATE 1 G TABLET PO SCH ×4 (06:34→22:14)
[2019-03-05 08:16] VITALS: BP 138/62
[2019-03-05] MEDS: AMLODIPINE 5 MG TABLET PO SCH (08:56)
[2019-03-05] MEDS: ASPIRIN EC 81 MG TABLET.DR PO SCH (08:56)
[2019-03-05] MEDS: ANASTROZOLE 1 MG TABLET PO SCH (09:16)
[2019-03-05] MEDS: MEMANTINE HCL 10 MG TABLET PO SCH ×2 (09:16→17:07)
[2019-03-05] MEDS: COLCHICINE 0.6 MG TABLET PO SCH ×2 (09:17→17:07)
[2019-03-05 16:00] VITALS: BP 145/65
[2019-03-05] MEDS: MONTELUKAST SODIUM 10 MG TABLET PO SCH (17:08)
--- NOTE | 2019-03-05 20:01 | NUR ---
EVENING BS 286 COVERED WITH SLIDING SCALE ORDERED. VERIFIED WITH RN JOSE.
[2019-03-05 20:29] VITALS: BP 134/64
[2019-03-05] MEDS: GABAPENTIN 100 MG CAPSULE PO SCH (22:14)
[2019-03-05] MEDS: EZETIMIBE 10 MG TABLET PO SCH (22:14)
[2019-03-05] MEDS: INSULIN REGULAR, HUMAN 300 UNIT/3 ML VIAL SQ PRN (22:18)
[2019-03-05] MEDS: INSULIN GLARGINE,HUM 300 UNITS/3 ML CARTRIDGE SQ SCH (22:19)
[2019-03-06 05:12] VITALS: BP 144/58
[2019-03-06] MEDS: PANTOPRAZOLE SODIUM 40 MG TABLET.DR PO SCH ×2 (06:14→17:03)
[2019-03-06] MEDS: BLOOD SUGAR DIAGNOSTIC 1 EACH STRIP VI SCH ×4 (06:30→21:22)
[2019-03-06] MEDS: SUCRALFATE 1 G TABLET PO SCH ×4 (06:30→21:23)
[2019-03-06] MEDS: AMLODIPINE 5 MG TABLET PO SCH (09:02)
[2019-03-06] MEDS: ASPIRIN EC 81 MG TABLET.DR PO SCH (09:02)
[2019-03-06] MEDS: MEMANTINE HCL 10 MG TABLET PO SCH ×2 (09:02→17:03)
[2019-03-06] MEDS: COLCHICINE 0.6 MG TABLET PO SCH ×2 (09:03→17:04)
[2019-03-06] MEDS: ANASTROZOLE 1 MG TABLET PO SCH (09:10)
[2019-03-06 09:12] VITALS: BP 125/60
[2019-03-06] MEDS: INSULIN REGULAR, HUMAN 300 UNIT/3 ML VIAL SQ PRN ×3 (11:49→21:25)
[2019-03-06 16:22] VITALS: BP 140/65
[2019-03-06] MEDS: MONTELUKAST SODIUM 10 MG TABLET PO SCH (17:05)
[2019-03-06 20:16] VITALS: BP 138/76
[2019-03-06] MEDS: EZETIMIBE 10 MG TABLET PO SCH (21:23)
[2019-03-06] MEDS: GABAPENTIN 100 MG CAPSULE PO SCH (21:23)
[2019-03-06] MEDS: INSULIN GLARGINE,HUM 300 UNITS/3 ML CARTRIDGE SQ SCH (21:27)
--- NOTE | 2019-03-07 04:43 | NUR ---
Received patient in bed. AAO x4. Not in acute distress or SOB. Able to make needs known. Bhutanese speaking but can communicate in Tanzanian. On room air. No Complain of pain. Double lumen mid-line on her right upper arm, intact, flushed, patent. Physical assessment done. All due medications given as ordered and well tolerated. Accucheck @2100: BS 189 covered by 3 units insulin based on sliding scale. Assisted her to the bathroom as needed. Fall prevention observed. Safety measures maintained. All needs attended promptly. Bed in low and lock position, alarm on, side rails up x2 for safety. Call light and frequently used items within reach. Continue to monitor and will endorse to the oncoming nurse accordingly.
[2019-03-07 05:38] VITALS: BP 134/61
[2019-03-07] MEDS: BLOOD SUGAR DIAGNOSTIC 1 EACH STRIP VI SCH ×4 (06:34→20:45)
[2019-03-07] MEDS: PANTOPRAZOLE SODIUM 40 MG TABLET.DR PO SCH ×2 (06:34→16:43)
[2019-03-07] MEDS: SUCRALFATE 1 G TABLET PO SCH ×4 (06:34→20:37)
[2019-03-07 07:44] VITALS: BP_SYST 146; BP_SYST 181; BP_DIAS 67; BP_DIAS 84
[2019-03-07] MEDS: ASPIRIN EC 81 MG TABLET.DR PO SCH (08:33)
[2019-03-07] MEDS: MEMANTINE HCL 10 MG TABLET PO SCH ×2 (08:34→16:42)
[2019-03-07] MEDS: COLCHICINE 0.6 MG TABLET PO SCH ×2 (08:34→16:42)
[2019-03-07] MEDS: AMLODIPINE 5 MG TABLET PO SCH (08:34)
[2019-03-07] MEDS: INSULIN REGULAR, HUMAN 300 UNIT/3 ML VIAL SQ PRN ×4 (08:35→20:42)
[2019-03-07] MEDS: ANASTROZOLE 1 MG TABLET PO SCH (08:41)
--- NOTE | 2019-03-07 09:36 | NUR ---
Received pt. in bed A/Ox4 verbally responsive and able to make her needs known. In no acute distress, tolerating RA well. All due AM medications administered as ordered with no ASE. Pt. on Lt. 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 No s/sx of hypo/hyperglycemia. Pt. teaching provided regarding meds. No new skin condition noted, BLE warm to touch with redness QUALITY COMPLIANCE MANAGER. CHERELLE midline patent and intact. Pt. participated with PT and tolerated well. All pt. needs attended and met promptly. Safety measures in place. Call light and all frequently used items within pt. reach. Will continue to monitor accordingly.
[2019-03-07 14:57] VITALS: BP 120/71
[2019-03-07] MEDS: MONTELUKAST SODIUM 10 MG TABLET PO SCH (17:14)
--- NOTE | 2019-03-07 18:05 | NUR ---
EOS: No significant change during this shift. All due medications administered as ordered. No new skin condition. No s/sx of hypo/hyperglycemia. Seen by Erasmo INTELLIGENCE ANALYST with no new order for BLE, no active infection per INTELLIGENCE ANALYST. All pt. needs attended and met promptly. Safety measures in place. Call light and all frequently used items within pt. reach.
[2019-03-07] MEDS: EZETIMIBE 10 MG TABLET PO SCH (20:38)
[2019-03-07] MEDS: GABAPENTIN 100 MG CAPSULE PO SCH (20:38)
[2019-03-07] MEDS: INSULIN GLARGINE,HUM 300 UNITS/3 ML CARTRIDGE SQ SCH (20:44)
[2019-03-07 20:49] VITALS: BP 138/71
--- NOTE | 2019-03-08 03:44 | NUR ---
Received patient in bed. AAO x4. Not in acute distress or SOB. Able to make needs known. Bulgarian speaking but can communicate in Filipino. On room air. No Complain of pain. Double lumen mid-line on her right upper arm, intact, flushed, patent. Physical assessment done. All due medications given as ordered and well tolerated. Accucheck @2100: BS 243 covered by 4 units insulin based on sliding scale. Picture taken and put in the chart. Fall prevention observed. Safety measures maintained. All needs attended promptly. Bed in low and lock position, alarm on, side rails up x2 for safety. Call light and frequently used items within reach. Continue to monitor and will endorse to the oncoming nurse accordingly.
[2019-03-08 04:00] VITALS: BP 147/75
[2019-03-08] MEDS: BLOOD SUGAR DIAGNOSTIC 1 EACH STRIP VI SCH ×4 (06:35→21:09)
[2019-03-08] MEDS: PANTOPRAZOLE SODIUM 40 MG TABLET.DR PO SCH (06:35)
[2019-03-08] MEDS: SUCRALFATE 1 G TABLET PO SCH ×2 (06:35→11:24)
[2019-03-08 07:33] LABS: BASOPHILS % (AUTO) 0.7 % (0.0-2.0); EOSINOPHILS # (AUTO) 0.3 K/uL (0.0-0.7); EOSINOPHILS % (AUTO) 4.1 % (0.0-7.0); HEMATOCRIT 30.3 % (31.2-41.9); LYMPHOCYTES # (AUTO) 2.5 K/uL (20.0-40.0); LYMPHOCYTES % (AUTO) 37.4 % (20.5-51.5); MEAN CORPUSCULAR HEMOGLOBIN 29.1 uug (24.7-32.8); MEAN CORPUSCULAR HGB CONC 33 g/dL (32.3-35.6); MEAN CORPUSCULAR VOLUME 88.4 fL (75.5-95.3); MONOCYTES # (AUTO) 0.6 K/uL (2.0-10.0); MONOCYTES % (AUTO) 8.3 % (0.0-11.0); NEUTROPHILS # (AUTO) 3.3 K/uL (1.8-8.9); NEUTROPHILS % (AUTO) 49.5 % (38.5-71.5); PLATELET COUNT (AUTO) 296 K/uL (179-408); RED BLOOD CELL COUNT(AUTO) 3.43 MIL/uL (3.63-4.92); WHITE BLOOD COUNT (AUTO) 6.7 K/uL (3.8-11.8)
[2019-03-08 07:41] VITALS: BP 151/64
[2019-03-08 08:16] LABS: BILIRUBIN,TOTAL 0.4 mg/dL (0.2-1.0); CREATININE 0.9 mg/dL (0.6-1.3); MAGNESIUM 1.6 mg/dL (1.8-2.4); PHOSPHOROUS 3.6 mg/dL (2.5-4.9); POTASSIUM 3.4 mmol/L (3.5-5.1); TOTAL PROTEIN, SERUM 7.2 g/dL (6.4-8.2)
[2019-03-08] MEDS: AMLODIPINE 5 MG TABLET PO SCH (08:27)
[2019-03-08] MEDS: ASPIRIN EC 81 MG TABLET.DR PO SCH (08:27)
[2019-03-08] MEDS: COLCHICINE 0.6 MG TABLET PO SCH (08:28)
[2019-03-08] MEDS: MEMANTINE HCL 10 MG TABLET PO SCH ×2 (08:28→17:06)
[2019-03-08] MEDS: ANASTROZOLE 1 MG TABLET PO SCH (08:29)
[2019-03-08 09:36] LABS: THYROID STIMULATING HORMONE 2.179 mIU/mL (0.358-3.740)
[2019-03-08] MEDS: INSULIN REGULAR, HUMAN 300 UNIT/3 ML VIAL SQ PRN ×3 (11:28→21:06)
[2019-03-08] MEDS ORDERED: POTASSIUM CHLORIDE 20 MEQ TAB.PRT.SR PO ONE (11:45)
[2019-03-08] MEDS ORDERED: MAGNESIUM OXIDE 400 MG TABLET PO ONE (11:45)
[2019-03-08 14:52] VITALS: BP 141/70
[2019-03-08] MEDS: MONTELUKAST SODIUM 10 MG TABLET PO SCH (17:06)
--- NOTE | 2019-03-08 20:00 | NUR ---
Received patient laying in bed. No acute distress noted. A/O x3 with some forgetfulness. Denies SOB and pain. In room air. Right eye blindness and prosthesis. Midline in the right upper arm, patent and intact. [facility] assessment done. Skin intact with redness and swelling on bilateral lower extremities. Vitals stable. Safety initiated. Call light within reach. Bed alarm on. Will closely monitor.
[2019-03-08] MEDS: GABAPENTIN 100 MG CAPSULE PO SCH (21:04)
[2019-03-08] MEDS: INSULIN GLARGINE,HUM 300 UNITS/3 ML CARTRIDGE SQ SCH (21:09)
[2019-03-08 21:36] VITALS: BP 112/83
--- NOTE | 2019-03-09 05:36 | NUR ---
Patient slept slept t/o shift. Denies pain or SOB. Vital signs stable. Safety and comfort measures maintained t/o shift. All meds given as ordered. All needs met.
[2019-03-09 05:49] VITALS: BP 132/64
[2019-03-09] MEDS: PANTOPRAZOLE SODIUM 40 MG TABLET.DR PO SCH (06:15)
[2019-03-09 07:30] VITALS: BP 138/57
[2019-03-09] MEDS: BLOOD SUGAR DIAGNOSTIC 1 EACH STRIP VI SCH ×4 (07:30→20:36)
[2019-03-09] MEDS: ASPIRIN EC 81 MG TABLET.DR PO SCH (08:54)
[2019-03-09] MEDS: AMLODIPINE 5 MG TABLET PO SCH (08:55)
[2019-03-09] MEDS: MEMANTINE HCL 10 MG TABLET PO SCH ×2 (08:57→17:31)
[2019-03-09] MEDS: COLCHICINE 0.6 MG TABLET PO SCH (08:57)
[2019-03-09] MEDS: ANASTROZOLE 1 MG TABLET PO SCH (08:57)
[2019-03-09] MEDS: FERROUS GLUCONATE 324 MG TABLET PO SCH (09:00)
[2019-03-09] MEDS: INSULIN REGULAR, HUMAN 300 UNIT/3 ML VIAL SQ PRN ×3 (09:15→20:31)
[2019-03-09 15:33] VITALS: BP 147/71
[2019-03-09] MEDS: MONTELUKAST SODIUM 10 MG TABLET PO SCH (17:31)
[2019-03-09 19:54] VITALS: BP 138/58
[2019-03-09] MEDS: GABAPENTIN 100 MG CAPSULE PO SCH (20:25)
[2019-03-09] MEDS: INSULIN GLARGINE,HUM 300 UNITS/3 ML CARTRIDGE SQ SCH (20:28)
[2019-03-10 05:41] VITALS: BP 147/61
--- NOTE | 2019-03-10 06:03 | NUR ---
Received patient in bed. AAO x4. Not in acute distress or SOB. Able to make needs known. Surinamese speaking but can communicate in Ivorian. On room air. No Complain of pain. Double lumen mid-line on her right upper arm, intact, flushed, patent. Physical assessment done. All due medications given as ordered and well tolerated. Accucheck @2100: BS 235 covered by 4 units insulin based on sliding scale. Fall prevention observed. Safety measures maintained. All needs attended promptly. Bed in low and lock position, alarm on, side rails up x2 for safety. Call light and frequently used items within reach. Continue to monitor and will endorse to the oncoming nurse accordingly.
[2019-03-10] MEDS: PANTOPRAZOLE SODIUM 40 MG TABLET.DR PO SCH (06:16)
[2019-03-10] MEDS: BLOOD SUGAR DIAGNOSTIC 1 EACH STRIP VI SCH ×4 (06:50→21:18)
--- NOTE | 2019-03-10 06:52 | NUR ---
Accucheck @0615, BS:60, no other symptoms present. Apple juice and orange juice given. Rechecked in half an hour, BS:100. Continue to monitor and will endorse to the day shift nurse.
[2019-03-10 07:49] VITALS: BP 149/60
[2019-03-10] MEDS: ASPIRIN EC 81 MG TABLET.DR PO SCH (08:42)
[2019-03-10] MEDS: FERROUS GLUCONATE 324 MG TABLET PO SCH (08:42)
[2019-03-10] MEDS: MEMANTINE HCL 10 MG TABLET PO SCH ×2 (08:43→16:17)
[2019-03-10] MEDS: COLCHICINE 0.6 MG TABLET PO SCH (08:43)
[2019-03-10] MEDS: AMLODIPINE 5 MG TABLET PO SCH (08:43)
[2019-03-10] MEDS: ANASTROZOLE 1 MG TABLET PO SCH (08:44)
[2019-03-10] MEDS: INSULIN REGULAR, HUMAN 300 UNIT/3 ML VIAL SQ PRN ×3 (11:42→21:23)
--- NOTE | 2019-03-10 13:23 | NUR ---
INTERDISCIPLINARY TEAM CONFERENCE
--- NOTE | 2019-03-10 13:45 | NUR ---
Shiela 03/08: K 3.4L, BUN 30H, Mg 1.6L, Alb 2.4, HgbA1c: 8.8H, H:H 10.3L:30.3L Addendum: 03/10/19 at [address] Amended: Links added.
[2019-03-10 15:08] VITALS: BP 140/66
--- NOTE | 2019-03-10 15:27 | NUR ---
Patient continue therapy for strenght and endurance, participation in ADL. not in distress. Continue blood sugar monitoring with sliding scale if needed. no signs of hypo/hyperglycemia. not in distress. will continue monitor
[2019-03-10] MEDS: MONTELUKAST SODIUM 10 MG TABLET PO SCH (17:22)
[2019-03-10 19:43] VITALS: BP 135/55
--- NOTE | 2019-03-10 19:55 | NUR ---
PATIENT ALERT ORIENTED, NO SOB NO CHEST PAIN. PATIENT HAS NO COMPLAIN PAIN AT THIS TIME. PATIENT WAS INSTRUCTED TO HAVE SNACK BEFORE GOING TO SLEEP TO AVOID LOW BLOOD SUGAR IN THE MORNING, WILL GIVE SNACK BEFORE BED TIME. PATIENT ASSIST WITH TOILETING, CALL LIGHT WITHIN REACH.
[2019-03-10] MEDS: INSULIN GLARGINE,HUM 300 UNITS/3 ML CARTRIDGE SQ SCH (21:22)
[2019-03-10] MEDS: GABAPENTIN 100 MG CAPSULE PO SCH (21:25)
[2019-03-11 05:44] VITALS: BP 137/60
[2019-03-11] MEDS: PANTOPRAZOLE SODIUM 40 MG TABLET.DR PO SCH (06:03)
[2019-03-11] MEDS: BLOOD SUGAR DIAGNOSTIC 1 EACH STRIP VI SCH ×4 (06:03→20:21)
[2019-03-11 08:00] VITALS: BP 140/58
[2019-03-11] MEDS: FERROUS GLUCONATE 324 MG TABLET PO SCH (08:36)
[2019-03-11] MEDS: COLCHICINE 0.6 MG TABLET PO SCH (08:36)
[2019-03-11] MEDS: AMLODIPINE 5 MG TABLET PO SCH (08:36)
[2019-03-11] MEDS: MEMANTINE HCL 10 MG TABLET PO SCH ×2 (08:37→16:43)
[2019-03-11] MEDS: ANASTROZOLE 1 MG TABLET PO SCH (08:42)
[2019-03-11] MEDS: ASPIRIN EC 81 MG TABLET.DR PO SCH (08:43)
[2019-03-11] MEDS: INSULIN REGULAR, HUMAN 300 UNIT/3 ML VIAL SQ PRN ×3 (11:44→20:23)
--- NOTE | 2019-03-11 15:49 | NUR ---
PATIENT IS ALERT, ORIENTED X4, NO SOB,RESP EVEN NONLABORED,SKIN WARM AND DRY TO TOUCH, AMBULATORY TO THE BATHROOM WITH FWW, WITH SUPERVISION, SITTING IN CHAIR, LIKES TO DRINK TEA. ABLE TO VOID AND EMPTY HER BLADDER. NO DISTRESS NOTED
[2019-03-11 16:07] VITALS: BP 133/74
[2019-03-11] MEDS: MONTELUKAST SODIUM 10 MG TABLET PO SCH (17:01)
--- NOTE | 2019-03-11 19:45 | NUR ---
Sleeping during initial rounds. No s/s of respiratory distress noted. Safety measure and fall precaution maintained. Continue care as planned.
[2019-03-11 19:50] VITALS: BP 156/70
[2019-03-11] MEDS: GABAPENTIN 100 MG CAPSULE PO SCH (20:18)
[2019-03-11] MEDS: INSULIN GLARGINE,HUM 300 UNITS/3 ML CARTRIDGE SQ SCH (20:24)
[2019-03-12] MEDS: PANTOPRAZOLE SODIUM 40 MG TABLET.DR PO SCH (05:29)
[2019-03-12] MEDS: BLOOD SUGAR DIAGNOSTIC 1 EACH STRIP VI SCH ×4 (05:34→20:22)
[2019-03-12 05:42] VITALS: BP 137/63
--- NOTE | 2019-03-12 05:42 | NUR ---
Shift End Report: VS stable. Slept good. No complaint presented. Needs 1 person assist when OOB. Denies s/s of hypo/hyperglycemia. No s/s of hypo/hypertension. No fall/injury reported. All needs attended and met. No significant event reported all night. Continue current rehab plan of care.
[2019-03-12 08:06] VITALS: BP 99/57
[2019-03-12] MEDS: ASPIRIN EC 81 MG TABLET.DR PO SCH (08:33)
[2019-03-12] MEDS: COLCHICINE 0.6 MG TABLET PO SCH (08:33)
[2019-03-12] MEDS: FERROUS GLUCONATE 324 MG TABLET PO SCH (08:33)
[2019-03-12] MEDS: REPAGLINIDE 1 MG TABLET PO SCH ×3 (08:33→17:28)
[2019-03-12] MEDS: MEMANTINE HCL 10 MG TABLET PO SCH ×2 (08:33→17:28)
[2019-03-12] MEDS: ANASTROZOLE 1 MG TABLET PO SCH (08:34)
[2019-03-12] MEDS: AMLODIPINE 5 MG TABLET PO SCH (08:35)
[2019-03-12] MEDS: INSULIN REGULAR, HUMAN 300 UNIT/3 ML VIAL SQ PRN ×2 (12:18→20:18)
[2019-03-12 16:17] VITALS: BP 140/81
[2019-03-12] MEDS: MONTELUKAST SODIUM 10 MG TABLET PO SCH (17:31)
--- NOTE | 2019-03-12 19:59 | NUR ---
Patient is AAOx4. Able to make needs known. In No acute distress. Vital signs taken and stable. Patient with midline or right arm, intact and in place. Denies pain at this time. Due medications administered as ordered and scheduled. Patient on PT/OT therapy as ordered, able to ambulate with a walker and W/C. Needs attended, safety measures in place, call light left at bed side, endorsed to next shift and will continue with care.
[2019-03-12] MEDS: GABAPENTIN 100 MG CAPSULE PO SCH (20:13)
[2019-03-12] MEDS: INSULIN GLARGINE,HUM 300 UNITS/3 ML CARTRIDGE SQ SCH (20:20)
[2019-03-12 22:23] VITALS: BP 137/61
[2019-03-13 04:30] VITALS: BP 141/71
--- NOTE | 2019-03-13 05:05 | NUR ---
Received patient in bed. AAO x4. Not in acute distress or SOB. Able to make needs known. Puerto Rican speaking but can communicate in Namibian. On room air. No Complain of pain. Double lumen mid-line on her right upper arm, intact, flushed, patent. Physical assessment done. All due medications given as ordered and well tolerated. Accucheck @2100: BS 162 covered by 3 units insulin based on sliding scale. Fall prevention observed. Safety measures maintained. All needs attended promptly. Bed in low and lock position, alarm on, side rails up x2 for safety. Call light and frequently used items within reach. Continue to monitor and will endorse to the oncoming nurse accordingly.
[2019-03-13] MEDS: PANTOPRAZOLE SODIUM 40 MG TABLET.DR PO SCH (06:19)
[2019-03-13] MEDS: BLOOD SUGAR DIAGNOSTIC 1 EACH STRIP VI SCH ×4 (06:34→20:39)
[2019-03-13 07:36] LABS: BILIRUBIN,TOTAL 0.5 mg/dL (0.2-1.0); CREATININE 0.8 mg/dL (0.6-1.3); MAGNESIUM 1.6 mg/dL (1.8-2.4); PHOSPHOROUS 3.8 mg/dL (2.5-4.9); POTASSIUM 3.7 mmol/L (3.5-5.1); TOTAL PROTEIN, SERUM 7.3 g/dL (6.4-8.2)
[2019-03-13 08:00] VITALS: BP 132/54
[2019-03-13 08:21] LABS: BASOPHILS % (AUTO) 0.7 % (0.0-2.0); EOSINOPHILS # (AUTO) 0.4 K/uL (0.0-0.7); EOSINOPHILS % (AUTO) 5.5 % (0.0-7.0); HEMATOCRIT 32.4 % (31.2-41.9); HEMOGLOBIN 10.6 g/dL (10.9-14.3); LYMPHOCYTES # (AUTO) 2.6 K/uL (20.0-40.0); LYMPHOCYTES % (AUTO) 38.2 % (20.5-51.5); MEAN CORPUSCULAR HEMOGLOBIN 29.3 uug (24.7-32.8); MEAN CORPUSCULAR HGB CONC 33 g/dL (32.3-35.6); MEAN CORPUSCULAR VOLUME 89.7 fL (75.5-95.3); MONOCYTES # (AUTO) 0.6 K/uL (2.0-10.0); MONOCYTES % (AUTO) 9.2 % (0.0-11.0); NEUTROPHILS # (AUTO) 3.2 K/uL (1.8-8.9); NEUTROPHILS % (AUTO) 46.4 % (38.5-71.5); PLATELET COUNT (AUTO) 224 K/uL (179-408); RED BLOOD CELL COUNT(AUTO) 3.61 MIL/uL (3.63-4.92); WHITE BLOOD COUNT (AUTO) 6.9 K/uL (3.8-11.8)
[2019-03-13] MEDS: ASPIRIN EC 81 MG TABLET.DR PO SCH (08:24)
[2019-03-13] MEDS: ANASTROZOLE 1 MG TABLET PO SCH (08:25)
[2019-03-13] MEDS: REPAGLINIDE 1 MG TABLET PO SCH ×3 (08:25→17:48)
[2019-03-13] MEDS: AMLODIPINE 5 MG TABLET PO SCH (08:25)
[2019-03-13] MEDS: MEMANTINE HCL 10 MG TABLET PO SCH ×2 (08:26→17:48)
[2019-03-13] MEDS: FERROUS GLUCONATE 324 MG TABLET PO SCH (08:26)
[2019-03-13] MEDS: COLCHICINE 0.6 MG TABLET PO SCH (08:26)
[2019-03-13] MEDS: INSULIN REGULAR, HUMAN 300 UNIT/3 ML VIAL SQ PRN ×2 (11:56→20:43)
[2019-03-13 15:31] VITALS: BP 111/66
[2019-03-13] MEDS ORDERED: MAGNESIUM OXIDE 400 MG TABLET PO ONE (16:30)
[2019-03-13] MEDS: MONTELUKAST SODIUM 10 MG TABLET PO SCH (17:48)
--- NOTE | 2019-03-13 17:57 | NUR ---
Pt received resting in bed. Assessed, AOx4, able to make needs known in Polish. Pt denies pain, no evidence of SOB or acute distress noted. Pt cooperative with routine medication administration and therapies as offered. Pt assisted to ambulate to toilet, steadily using walker. x1 assist. Pt returned back to bed. Bed in locked, lowest position, alarm on, with side rails up x2. right upper arm, double lumen, mid-line intact, flushed, and patent. BS 128, does not require coverage. All comfort and safety needs attended to promptly this shift. VSS. Call light and personal items placed within reach. Will continue to monitor and endorse to oncoming swimming coach.
[2019-03-13] MEDS ORDERED: RIVAROXABAN 10 MG TABLET PO SCH (18:00)
[2019-03-13 20:20] VITALS: BP 152/76
[2019-03-13] MEDS: GABAPENTIN 100 MG CAPSULE PO SCH (20:36)
[2019-03-13] MEDS: INSULIN GLARGINE,HUM 300 UNITS/3 ML CARTRIDGE SQ SCH (20:44)
--- NOTE | 2019-03-14 03:50 | NUR ---
Received patient sitting in wheelchair, watching TV. AAO x4. Not in acute distress or SOB. Able to make needs known. Tajik speaking but can communicate in Hungarian. On room air. No Complain of pain. Double lumen mid-line on her right upper arm, intact, flushed, patent. Physical assessment done. All due medications given as ordered and well tolerated. Accucheck @2100: BS 203 covered by 4 units insulin based on sliding scale. Lantus 40 units administered. Fall prevention observed. Safety measures maintained. All needs attended promptly. Bed in low and lock position, alarm on, side rails up x2 for safety. Call light and frequently used items within reach. Continue to monitor and will endorse to the oncoming nurse accordingly.
[2019-03-14 05:31] VITALS: BP 141/65
[2019-03-14] MEDS: PANTOPRAZOLE SODIUM 40 MG TABLET.DR PO SCH (06:06)
[2019-03-14] MEDS: BLOOD SUGAR DIAGNOSTIC 1 EACH STRIP VI SCH ×2 (06:37→12:28)
[2019-03-14 07:59] VITALS: BP 147/67
[2019-03-14] MEDS: COLCHICINE 0.6 MG TABLET PO SCH (08:41)
[2019-03-14] MEDS: ASPIRIN EC 81 MG TABLET.DR PO SCH (08:41)
[2019-03-14] MEDS: MEMANTINE HCL 10 MG TABLET PO SCH (08:41)
[2019-03-14] MEDS: AMLODIPINE 5 MG TABLET PO SCH (08:41)
[2019-03-14] MEDS: FERROUS GLUCONATE 324 MG TABLET PO SCH (08:42)
[2019-03-14] MEDS: ANASTROZOLE 1 MG TABLET PO SCH (08:42)
[2019-03-14] MEDS: REPAGLINIDE 1 MG TABLET PO SCH ×2 (08:42→12:30)
[2019-03-14] MEDS: INSULIN REGULAR, HUMAN 300 UNIT/3 ML VIAL SQ PRN (08:44)
--- NOTE | 2019-03-14 15:11 | NUR ---
Received patient awake in bed. Alert and oriented x3-4. not in distress. Patient for discharge between 3-4pm. TMS done. Continue blood sugar monitoring. Last BS- 127mg/dl no signs of hypo/hyperglycemia. will continue monitor
[2019-03-14 16:05] VITALS: BP 138/66
--- NOTE | 2019-03-14 16:27 | NUR ---
Patient discharge to home with home health care in stable condition via private car with brother and sister in-law. medication list fax to pharmacy given and receipt. Medication list and appointment given to patient and brother. verbalize understanding. not in distress.
--- NOTE | 2019-03-14 16:38 | NUR ---
Patient discharge aorund 415pm. thankful for the care given.
== END 2019-03-14 16:15 | disposition home health service (06) | DRG 720 ==
LOC: UNDODISIN 02-24 16:05
PROVIDERS: ADMIT Physical Medicine & Rehabilitation Pain Medicine; ATTEND Physical Medicine & Rehabilitation Pain Medicine
DX: A41.9 Sepsis, unspecified organism (principal); N17.0 Acute kidney failure with tubular necrosis; A04.72 Enterocolitis due to Clostridium difficile, not specified as recurrent; I82.403 Acute embolism and thrombosis of unspecified deep veins of lower extremity, bilateral; E11.42 Type 2 diabetes mellitus with diabetic polyneuropathy; E11.622 Type 2 diabetes mellitus with other skin ulcer; D68.59 Other primary thrombophilia; E11.22 Type 2 diabetes mellitus with diabetic chronic kidney disease; E11.65 Type 2 diabetes mellitus with hyperglycemia; B48.8 Other specified mycoses; E87.1 Hypo-osmolality and hyponatremia; Z85.3 Personal history of malignant neoplasm of breast; R65.20 Severe sepsis without septic shock; E78.5 Hyperlipidemia, unspecified; I50.32 Chronic diastolic (congestive) heart failure; J44.9 Chronic obstructive pulmonary disease, unspecified; L03.115 Cellulitis of right lower limb; L03.116 Cellulitis of left lower limb; M10.9 Gout, unspecified; Z79.4 Long term (current) use of insulin; Z90.12 Acquired absence of left breast and nipple; Z97.0 Presence of artificial eye; K92.1 Melena; L97.529 Non-pressure chronic ulcer of other part of left foot with unspecified severity; L98.499 Non-pressure chronic ulcer of skin of other sites with unspecified severity; H54.61 Unqualified visual loss, right eye, normal vision left eye; N18.9 Chronic kidney disease, unspecified; I13.0 Hypertensive heart and chronic kidney disease with heart failure and stage 1 through stage 4 chronic kidney disease, or unspecified chronic kidney disease; E78.00 Pure hypercholesterolemia, unspecified; J30.9 Allergic rhinitis, unspecified; K21.9 Gastro-esophageal reflux disease without esophagitis; M19.90 Unspecified osteoarthritis, unspecified site; B95.0 Streptococcus, group A, as the cause of diseases classified elsewhere
CPT/HCPCS: 36415; 71045; 82652; 83550; 83735; 84100; 84443; 85018; 85025; 93005; A4663; J0692; J0696; J1815; J2250; J3010; J3370; J7050; J7060; J8597

== ENCOUNTER 2019-02-24 17:20 | Day surgery (SDC) | payer MEDICARE, MEDICAID ==
[~2019-02-24 17:20] MED LIST: ANAS1TAB8 PO; ASPI-605 PO; CEFE1PIG3 IV; COLC0.6C3 PO; EZET10TA32 PO; FAMO40TA7 PO; GABA-534 PO; MECL-159 PO; MEMA10TA PO; MONT10TA22 PO; VANC1PLA9 IV; [UNRECOGNIZED DRUG - CODE] PO; [UNRECOGNIZED DRUG - OTHER] SUBCUT
[2019-02-24] MEDS ORDERED: IV NORMAL SALINE 1000 ML BAG IV ONE (17:21)
[2019-02-24] MEDS ORDERED: HEPARIN/NS 500 ML ONE (17:31)
[2019-02-24] MEDS ORDERED: LIDOCAINE HCL 1% 20 ML VIAL ONE (17:31)
[2019-02-24] MEDS ORDERED: IOHEXOL-240 MG , 50 ML VIAL IV ONE ×2 (17:31→18:16)
== END 2019-02-24 19:25 | disposition still patient (30) ==
LOC: DS 17:20
PROVIDERS: ATTEND Surgery Vascular Surgery
DX: I82.401 Acute embolism and thrombosis of unspecified deep veins of right lower extremity (principal); I11.0 Hypertensive heart disease with heart failure; I50.9 Heart failure, unspecified; E11.9 Type 2 diabetes mellitus without complications; E66.9 Obesity, unspecified; Z79.82 Long term (current) use of aspirin; Z79.899 Other long term (current) drug therapy; Z79.4 Long term (current) use of insulin
CPT/HCPCS: 37191; 74018; 76000; C1880; J1644; J3490; C1769; J7030; Q9966